=== PATIENT | male | born 1960 | race Caucasian/White ===

== ENCOUNTER 2016-09-04 07:08 | Inpatient (IN) | payer BC, OTHER ==
[~2016-09-04] VITALS: Ht 167.6 cm; Wt 65.3 kg
--- NOTE | 2016-11-15 23:30 | NUR ---
Intake Assessment Assessment done at intake office. Patient is alert & oriented x4. Pt is ambulatory with a steady gait. Speech is clear and audible. Pt appears appears anxious and is cooperative. Vitals noted B/P 153/102, PA 80, RR 16, Temp 97.9, O2Sat 98%. Pt is here for ETOH & Crack Cocaine. Pt has Anxiety, Depression, HTN, and Asthma. No seizure history noted. Pt denies any food and drug allergies. Pt brought his home medications which are Labetalol & Tylenol. Explained to pt unit protocols. Pt verbalized understanding.
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
[2016-11-15] MEDS ORDERED: MAGNESIUM HYDROXIDE 30 ML LIQUID UDC PO PRN (23:45)
[2016-11-15] MEDS ORDERED: THIAMINE HCL 200 MG/2 ML VIAL IM ONE (23:45)
[2016-11-15] MEDS ORDERED: ACETAMINOPHEN 325 MG TABLET PO PRN (23:45)
[2016-11-15] MEDS ORDERED: HYDROXYZINE PAMOATE 25 MG CAPSULE PO PRN (23:45)
[2016-11-15] MEDS ORDERED: LOPERAMIDE HCL 2 MG CAPSULE PO PRN ×2 (23:45)
[2016-11-15] MEDS ORDERED: LORAZEPAM 1 MG TABLET PO PRN (23:45)
[2016-11-15] MEDS ORDERED: ONDANSETRON 4 MG/2 ML VIAL IM PRN (23:45)
[2016-11-15] MEDS ORDERED: LORAZEPAM 2 MG/1 ML VIAL IM PRN (23:45)
[2016-11-15] MEDS ORDERED: MIRALAX 17 GM POWD.PACK PO PRN (23:45)
[2016-11-15] MEDS ORDERED: DICYCLOMINE HCL 20 MG TABLET PO PRN (23:45)
[2016-11-15] MEDS ORDERED: diphenhydrAMINE 50 MG CAPSULE PO PRN (23:45)
[2016-11-15] MEDS ORDERED: MAG HYDROX/AL HYDROX/SIMETH 30 ML LIQUID UDC PO PRN (23:45)
[2016-11-16] VITALS (7 sets, daily range): BP systolic 106–153; BP diastolic 82–102
[2016-11-16 00:03] LABS: *AMPHETAMINE, URINE NEGATIVE (NEGATIVE); *BARBITURATE, URINE NEGATIVE (NEGATIVE); *CANNABINOID, URINE NEGATIVE (NEGATIVE); *COCCAINE, URINE POSITIVE (NEGATIVE); *OPIATE, URINE NEGATIVE (NEGATIVE); *PHENCYCLIDINE SCREEN,URINE NEGATIVE (NEGATIVE)
[2016-11-16] MEDS: LORAZEPAM 1 MG TABLET PO PRN ×2 (00:27→09:38)
--- NOTE | 2016-11-16 00:27 | NUR ---
PRN Administration Patient complains of mild headache & anxiety. Hand tremors felt. CIWA 7 noted. Vitals taken. B/P 153/102, CA 80. PRN Clonidine, Ativan 1mg, & Motrin administered as ordered. Will reassess in 1 hour. Will continue to monitor.
[2016-11-16] MEDS: CLONIDINE HCL 0.1 MG TABLET PO PRN ×3 (00:28→13:19)
[2016-11-16] MEDS: IBUPROFEN 400 MG TABLET PO PRN ×3 (00:28→19:41)
[2016-11-16] MEDS ORDERED: IBUPROFEN 400 MG TABLET ONE ×2 (00:30→06:50)
[2016-11-16] MEDS ORDERED: LORAZEPAM 1 MG TABLET ONE (00:31)
[2016-11-16] MEDS ORDERED: CLONIDINE HCL 0.1 MG TABLET ONE ×2 (00:35→06:50)
--- NOTE | 2016-11-16 01:27 | NUR ---
PRN Reassessment Patient lying in bed with eyes closed. Patient appears comfortable with no s/s of distress noted. CIWA 1 noted at this time. Will continue to monitor patient.
[2016-11-16] MEDS ORDERED: ACET-2154 PO (01:51)
[2016-11-16] MEDS ORDERED: LABE200T PO (01:51)
--- NOTE | 2016-11-16 06:50 | NUR ---
PRN Administration Patient complain of 8/10 body aches, mild headache, sweating & chills. Patient noted to be anxious and restless with facial grimacing noted. VItals taken. B/P 129/96, FL 75. PRN Catapres and Motrin administered as ordered. Will continue to monitor patient.
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
[2016-11-16] MEDS ORDERED: TUBERCULIN,PURIF.PROT.DERIV. 5 TU/0.1 ML TEST ID ONE (09:00)
[2016-11-16] MEDS: THIAMINE HCL 100 MG TABLET PO SCH (09:38)
[2016-11-16] MEDS: MULTIVITAMINS,THERAPEUTIC TABLET PO SCH (09:38)
[2016-11-16] MEDS: FOLIC ACID 1 MG TABLET PO SCH (09:38)
--- NOTE | 2016-11-16 09:38 | NUR ---
PRN medication; Patient noted to be having withdrawal symptoms with current CIWA score of 9 manifested by hot and cold sweats, anxiety, fine tremors, stomach cramps, anxiety and agitation.
[2016-11-16 09:59] LABS: BASOPHILS % (AUTO) 0.4 % (0.0-2.0); EOSINOPHILS % (AUTO) 1.6 % (0.0-7.0); HEMATOCRIT 34.8 % (40-50); HEMOGLOBIN 11.1 G/DL (14.0-18.0); LYMPHOCYTES % (AUTO) 33.7 % (20.5-51.5); MEAN CORPUSCULAR HEMOGLOBIN 26.8 UUG (27.0-31.0); MEAN CORPUSCULAR HGB CONC 32 g/dL (32.0-37.0); MEAN CORPUSCULAR VOLUME 84.4 FL (82.0-92.0); MONOCYTES # (AUTO) 0.3 K/UL (0.1-1.30); MONOCYTES % (AUTO) 10.8 % (0.0-11.0); NEUTROPHILS # (AUTO) 1.8 K/UL (1.8-8.9); NEUTROPHILS % (AUTO) 53.5 % (38.5-71.5); PLATELET COUNT (AUTO) 130 K/UL (150-450); RED BLOOD CELL COUNT(AUTO) 4.12 MIL/UL (4.7-6.1); RED CELL DISTRIBUTION WIDTH 13.8 % (11.5-14.5); WHITE BLOOD COUNT (AUTO) 3.1 K/UL (4.0-11.2)
[2016-11-16 10:09] LABS: ALANINE AMINOTRANSFERASE 24 U/L (16-63); ALBUMIN 2.8 g/dL (3.4-5.0); ALKALINE PHOSPHATASE 75 U/L (50-136); AMYLASE 178 U/L (25-115); ASPARTATE AMINOTRANSFERASE 19 U/L (15-37); BILIRUBIN,TOTAL 0.3 mg/dL (0.2-1.0); CALCIUM 8.2 mg/dL (8.5-10.1); CARBON DIOXIDE 32 mmol/L (21-32); CHLORIDE 110 mmol/L (98-107); CREATININE 1.1 mg/dL (0.6-1.3); GFR 69 mL/min (>60); GLUCOSE 134 mg/dL (74-106); LIPASE 1028 U/L (73-393); MAGNESIUM 1.9 mg/dL (1.8-2.4); POTASSIUM 3.4 mmol/L (3.5-5.1); SODIUM SERUM 144 mmol/L (136-145); TOTAL PROTEIN, SERUM 6.7 g/dL (6.4-8.2); UREA NITROGEN, BLOOD 14 mg/dL (7-18)
[2016-11-16 10:18] LABS: THYROID STIMULATING HORMONE 0.497 mIU/mL (0.358-3.740)
--- NOTE | 2016-11-16 10:38 | NUR ---
Re-assessment; PRN medication is effective. Patient's CIWA went down to 8 from CIWA score of 10. Will closely monitor patient. made aware, MD ordered 3 day Ativan taper to start at 1300. MD notified of patient's LAB results, no new order at this time. Will closely monitor patient.
[2016-11-16 10:43] LABS: ETHANOL < 3 MG/DL (0-0)
[2016-11-16 10:45] LABS: HIV-1 p24 ANTIGEN NON REACTIVE (NONREACTIVE); HIV-1/2 ANTIBODY REACTIVE (NONREACTIVE)
--- NOTE | 2016-11-16 11:51 | NUR ---
Client refuses to attend therapy group. Client is not feeling well.
[2016-11-16] MEDS: LORAZEPAM 1 MG TABLET PO SCH ×3 (13:18→21:57)
--- NOTE | 2016-11-16 13:19 | NUR ---
PRN medication; Patient noted to have elevated BP 142 /101. PRN Catapres 0.1mg PO given for elevated BP. Will closely monitor patient.
--- NOTE | 2016-11-16 14:19 | NUR ---
Re-assessment; Patient's current BP 128 /88, PRN medication is effective.
[2016-11-16] MEDS: GABAPENTIN 300 MG CAPSULE PO SCH (14:30)
[2016-11-16] MEDS ORDERED: POTASSIUM CHLORIDE 20 MEQ TAB.PRT.SR PO ONE (15:30)
--- NOTE | 2016-11-16 15:30 | NUR ---
New Order; ordered K-DUR 20meq to be administered for supplement. Will continue to monitor patient.
[2016-11-16] MEDS: ONDANSETRON ODT 4 MG TAB.RAPDIS SL PRN (18:26)
--- NOTE | 2016-11-16 18:32 | NUR ---
PRN medication; Patient is complaining of nausea, PRN Zofran 4mg ODT given to patient. Will continue to monitor patient.
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
--- NOTE | 2016-11-16 19:41 | NUR ---
PRN Reassessment & Administration Patient was given Zofran SL @ 1826 for nausea and noted to be ineffective. Patient still complains of nausea. No episode of vomiting noted. Patient also complains of 6/10 headache. Patient appears anxious and restless with facial grimacing noted. PRN Zofran IM and Motrin administered as ordered. Will reassess in 1 hour. Will continue to monitor patient.
--- NOTE | 2016-11-16 20:41 | NUR ---
PRN Reassessment Patient verbalized improved nausea and relief from headache. Patient lying in bed with eyes closed. Patient appears comfortable with no s/s of distress noted. Safety precautions are in place. Will continue to monitor patient.
[2016-11-16] MEDS ORDERED: GABAPENTIN 300 MG CAPSULE PO SCH (21:00)
[2016-11-16] MEDS: LABETALOL HCL 200 MG TABLET PO SCH (21:57)
[2016-11-17] VITALS: BP 150/102
[2016-11-17] MEDS: CLONIDINE HCL 0.1 MG TABLET PO PRN ×2 (00:35→09:19)
--- NOTE | 2016-11-17 00:35 | NUR ---
PRN Adminstration Patient noted with anxiety and B/P of 150/102, SC 74. PRN Clonidine administered as ordered. Will continue to monitor patient.
[2016-11-17 04:00] VITALS: BP_SYST 147; BP_SYST 90; BP_DIAS 55; BP_DIAS 95
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
[2016-11-17 08:00] VITALS: BP 147/106
[2016-11-17 08:23] LABS: CALCIUM 8.7 mg/dL (8.5-10.1); POTASSIUM 5.2 mmol/L (3.5-5.1)
[2016-11-17 08:46] LABS: HIV-1 p24 ANTIGEN NON REACTIVE (NONREACTIVE); HIV-1/2 ANTIBODY REACTIVE (NONREACTIVE)
[2016-11-17] MEDS: LORAZEPAM 1 MG TABLET PO SCH ×3 (09:19→20:58)
[2016-11-17] MEDS: ONDANSETRON ODT 4 MG TAB.RAPDIS SL PRN ×2 (09:19→20:58)
[2016-11-17] MEDS: MULTIVITAMINS,THERAPEUTIC TABLET PO SCH (09:19)
[2016-11-17] MEDS: FOLIC ACID 1 MG TABLET PO SCH (09:19)
[2016-11-17] MEDS: GABAPENTIN 300 MG CAPSULE PO SCH ×3 (09:19→20:58)
[2016-11-17] MEDS: THIAMINE HCL 100 MG TABLET PO SCH (09:19)
--- NOTE | 2016-11-17 09:19 | NUR ---
PRN medication; Patient's BP is elevated 147/106, Clonidine 0.1mg PO given. Patient is also complaining of nausea, Zofran 4mg ODT given. Will closely monitor patient.
[2016-11-17] MEDS: LABETALOL HCL 200 MG TABLET PO SCH ×2 (09:20→20:58)
[2016-11-17] MEDS: IBUPROFEN 400 MG TABLET PO PRN ×2 (09:31→20:58)
--- NOTE | 2016-11-17 09:31 | NUR ---
PRN medication; Patient is complaining of generalized pain rated 6/10. PRN Motrin 400mg PO given. Will continue to monitor patient.
--- NOTE | 2016-11-17 10:31 | NUR ---
Re-assessment; Patient denies pain at this time, PRN Motrin is effective. Patient denies nausea and current BP is 137/72. PRN Clonidine and Zofran is effective.
[2016-11-17 11:08] LABS: HCV AB <0.1 s/co ratio (0.0-0.9); HEPATITIS B CORE AB, IgM Negative (Negative); HEPATITIS B SURFACE AG Negative (Negative)
[2016-11-17 12:00] VITALS: BP 131/85
--- NOTE | 2016-11-17 12:00 | NUR ---
1:1 supervision; Patient was placed on 1:1 supervision for safety due to unsteady gait. Safety measures secured.
--- NOTE | 2016-11-17 12:00 | NUR ---
Nursing note; Patient verbalized that he was previously diagnosed with HIV (+), he was on treatment for HIV (Triumeq). Patient stopped taking medication 4 months ago d/t financial reasons. was notified per charge nurse. Will continue to monitor patient.
[2016-11-17] MEDS ORDERED: METHOCARBAMOL 750 MG TABLET PO PRN (12:30)
[2016-11-17] MEDS: AMLODIPINE 5 MG TABLET PO SCH (13:06)
--- NOTE | 2016-11-17 15:00 | NUR ---
Medication held; Ativan dose held due to unsteady gait, patient is currently under direct supervision of UNSTACKER. MD notified. Will closely monitor patient.
[2016-11-17 16:00] VITALS: BP 132/89
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
[2016-11-17 20:00] VITALS: BP 141/94
--- NOTE | 2016-11-17 20:58 | NUR ---
PRN Motrin & Zofran Patient complains of 5/10 headache, body aches and nausea. No episode of vomiting noted. Patient lying in bed and appears restless with facial grimacing noted. PRN Motrin & Zofran administered as ordered. Will reassess in 1 hour. Will continue to monitor
--- NOTE | 2016-11-17 21:58 | NUR ---
PRN Reassessment Patient is asleep in bed and appears comfortable. No facial grimacing noted. No s/s of distress. Safety precautions are in place. Will continue to monitor patient.
[2016-11-18] VITALS: BP 110/74
[2016-11-18 04:00] VITALS: BP 139/82
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
[2016-11-18 08:00] VITALS: BP 134/101
[2016-11-18 08:08] LABS: CALCIUM 8.5 mg/dL (8.5-10.1); CREATININE 1.1 mg/dL (0.6-1.3); POTASSIUM 4.7 mmol/L (3.5-5.1)
[2016-11-18] MEDS: GABAPENTIN 300 MG CAPSULE PO SCH ×3 (09:00→20:27)
--- NOTE | 2016-11-18 09:00 | NUR ---
VSS CIWA 9 c/o tremors, sweating, anxiety and back pain. Motrin 400mg po prn given for back pain 02/07
[2016-11-18] MEDS: FOLIC ACID 1 MG TABLET PO SCH (09:01)
[2016-11-18] MEDS: THIAMINE HCL 100 MG TABLET PO SCH (09:01)
[2016-11-18] MEDS: MULTIVITAMINS,THERAPEUTIC TABLET PO SCH (09:01)
[2016-11-18] MEDS: LORAZEPAM 1 MG TABLET PO SCH ×2 (09:01→20:27)
[2016-11-18] MEDS: AMLODIPINE 5 MG TABLET PO SCH (09:01)
[2016-11-18] MEDS: LABETALOL HCL 200 MG TABLET PO SCH ×2 (09:02→20:27)
[2016-11-18] MEDS: IBUPROFEN 400 MG TABLET PO PRN (09:09)
--- NOTE | 2016-11-18 10:00 | NUR ---
Pt states back pain 5/10 after Motrin prn
[2016-11-18 13:24] VITALS: BP 130/92
[2016-11-18] MEDS: KETOROLAC TROMETHAMINE 30 MG INJ IM PRN (13:36)
--- NOTE | 2016-11-18 13:40 | NUR ---
Pt c/o back pain 10/10 Toradol 30mg IM prn administered.
--- NOTE | 2016-11-18 14:49 | NUR ---
Pt states back pain 10 after Toradol IM prn
[2016-11-18] MEDS: DOCUSATE SODIUM 100 MG CAPSULE PO SCH (17:34)
[2016-11-18] MEDS: HYDROCORTISONE 2.5 % RECTAL CREAM 28.35 GM TUBE RC SCH (17:35)
[2016-11-18 17:49] VITALS: BP 129/92
--- NOTE | 2016-11-18 18:42 | NUR ---
END OF SHIFT NOTE: Report given to dark room attendant nurse. Patient is a 56 year old male admitted on 11/15/16 for ETOH/cocaine dependence. Pt is currently on a 5 day Ativan taper. Tolerating well. Pt is alert and oriented X4. Color good, skin warm and dry. Respirations even and unlabored. Vital signs have remained stable throughout shift. Last CIWA 4 @ 1600. Motrin 400mg po prn given for back pain 02/07 @ 0900 and Toradol 30mg IM prn administered @ 1340. Resting in bed. Safety precautions observed. Call light within reach.
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
[2016-11-18 20:00] VITALS: BP 136/95
[2016-11-18] MEDS: NYSTATIN POWDER 15 GM BOTTLE TOP SCH (20:28)
[2016-11-18] MEDS ORDERED: MIRALAX 17 GM POWD.PACK PO PRN (23:45)
[2016-11-19] VITALS: BP 122/72
--- NOTE | 2016-11-19 02:21 | NUR ---
PRN ROBAXIN Pt complains of back pain/spasm 04/09. PRN Robaxin administered as ordered. Breathing even and unlabored, safety measures in place. Will monitor effectiveness.
--- NOTE | 2016-11-19 03:21 | NUR ---
PRN ROBAXIN REASSESSMENT PRN medication effective. Pt is lying comfortably in bed with eyes closed and is noted to be asleep. Respirations 16, breathing is even and unlabored, safety measures in place. Will monitor.
[2016-11-19 04:00] VITALS: BP 135/80
--- NOTE | 2016-11-19 04:00 | NUR ---
CIWA DEFERRED Pt lying in bed with eyes closed and is noted to be asleep. Respirations 16, breathing is even and unlabored, safety measures in place. Will continue to monitor.
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
[2016-11-19 08:00] VITALS: BP 133/100
[2016-11-19] MEDS: DOCUSATE SODIUM 100 MG CAPSULE PO SCH ×2 (09:00→16:20)
--- NOTE | 2016-11-19 09:00 | NUR ---
VSS CIWA 4 c/o sweating and anxiety. C/O back pain 10/10 Toradol 30mg IM prn administered.
[2016-11-19 09:07] LABS: *BASOS 1 % (.); *EOS 1 % (.); *EOS ABSOLUTE 0.1 x10E3/uL (0.0-0.4); *HCT 38.3 % (37.5-51.0); *HGB 11.8 g/dL (12.6-17.7); *IMMATURE GRANULOCYTES 0 % (.); *LYMPHOCYTES 29 % (.); *LYMPHOCYTES ABSOLUTE 1.3 x10E3/uL (0.7-3.1); *MCH 26.6 pg (26.6-33.0); *MCHC 30.8 g/dL (31.5-35.7); *MCV 86 fL (79-97); *MONOCYTES 10 % (.); *MONOCYTES ABSOLUTE 0.4 x10E3/uL (0.1-0.9); *NEUTROPHILS 59 % (.); *NEUTROPHILS ABSOLUTE 2.6 x10E3/uL (1.4-7.0); *PLT 141 x10E3/uL (150-379); *RBC 4.44 x10E6/uL (4.14-5.80); *WBC 4.4 x10E3/uL (3.4-10.8)
[2016-11-19] MEDS: NYSTATIN POWDER 15 GM BOTTLE TOP SCH ×2 (09:10→20:37)
[2016-11-19] MEDS: HYDROCORTISONE 2.5 % RECTAL CREAM 28.35 GM TUBE RC SCH ×2 (09:11→17:03)
[2016-11-19] MEDS: GABAPENTIN 300 MG CAPSULE PO SCH ×3 (09:12→20:35)
[2016-11-19] MEDS: THIAMINE HCL 100 MG TABLET PO SCH (09:12)
[2016-11-19] MEDS: FOLIC ACID 1 MG TABLET PO SCH (09:12)
[2016-11-19] MEDS: MULTIVITAMINS,THERAPEUTIC TABLET PO SCH (09:12)
[2016-11-19] MEDS: LABETALOL HCL 200 MG TABLET PO SCH ×2 (09:12→20:37)
[2016-11-19] MEDS: AMLODIPINE 5 MG TABLET PO SCH (09:13)
[2016-11-19] MEDS: KETOROLAC TROMETHAMINE 30 MG INJ IM PRN (09:13)
--- NOTE | 2016-11-19 10:05 | NUR ---
Pt states pain 6/10 after Toradol IM prn
[2016-11-19 13:28] VITALS: BP 122/86
[2016-11-19 14:18] LABS: *AMPHETAMINE, URINE NEGATIVE (NEGATIVE); *BARBITURATE, URINE NEGATIVE (NEGATIVE); *CANNABINOID, URINE NEGATIVE (NEGATIVE); *OPIATE, URINE NEGATIVE (NEGATIVE); *PHENCYCLIDINE SCREEN,URINE NEGATIVE (NEGATIVE)
[2016-11-19 14:26] LABS: *COCCAINE, URINE NEGATIVE (NEGATIVE)
--- NOTE | 2016-11-19 14:46 | NUR ---
Pt c/o headache. Motrin 400mg po prn given
--- NOTE | 2016-11-19 15:13 | NUR ---
Client was encouraged to attend the afternoon clinical group. Client declined stating he felt unwell.
--- NOTE | 2016-11-19 15:45 | NUR ---
Pt states headache improved after Motrin prn
[2016-11-19 18:01] VITALS: BP 131/88
[2016-11-19] MEDS: ESCITALOPRAM OXALATE 10 MG TABLET PO SCH (18:29)
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
--- NOTE | 2016-11-19 19:30 | NUR ---
START OF SHIFT-- Patient is a 56 year old male admitted on 11/15/16 for ETOH/cocaine dependence. Pt completed a 5 day Ativan taper. To be discharged in AM. Pt is alert and oriented X4; skin warm and dry. Respirations even and unlabored. Vital signs have remained stable throughout shift. Remains compliant with medication and diet regimen. All needs have been met, All safety measures in place per hospital policy. Bed in lowest position, side rails up x2, call-light within reach. Will continue to monitor.
[2016-11-19 20:00] VITALS: BP 138/97
[2016-11-20] VITALS: BP 124/79
[2016-11-20 03:06] LABS: *HELPER T-LYMPH MARKR(CD4)ABSO 228 /uL (359-1519); *HELPER T-LYNPH MARKER CD4)% 17.5 % (30.8-58.5)
[2016-11-20] MEDS: KETOROLAC TROMETHAMINE 30 MG INJ IM PRN (03:59)
[2016-11-20 04:00] VITALS: BP 135/86
--- NOTE | 2016-11-20 04:00 | NUR ---
PRN MEDS PRN TORADOL IM GIVEN ORDERED PER PT REQUEST FOR BACK PAIN.PAIN LEVEL IS 10/10.
--- NOTE | 2016-11-20 05:00 | NUR ---
prn f/u Pt verbalizes feeling better.Pain level is 2/10.
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
[2016-11-20 08:00] VITALS: BP 124/86
[2016-11-20] MEDS: LABETALOL HCL 200 MG TABLET PO SCH (08:43)
[2016-11-20 08:44] VITALS: BP 124/86
[2016-11-20] MEDS: GABAPENTIN 300 MG CAPSULE PO SCH (08:44)
[2016-11-20] MEDS: ESCITALOPRAM OXALATE 10 MG TABLET PO SCH (08:44)
[2016-11-20] MEDS: FOLIC ACID 1 MG TABLET PO SCH (08:44)
[2016-11-20] MEDS: NYSTATIN POWDER 15 GM BOTTLE TOP SCH (08:44)
[2016-11-20] MEDS: MULTIVITAMINS,THERAPEUTIC TABLET PO SCH (08:44)
[2016-11-20] MEDS: AMLODIPINE 5 MG TABLET PO SCH (08:44)
[2016-11-20] MEDS: DOCUSATE SODIUM 100 MG CAPSULE PO SCH (08:44)
[2016-11-20] MEDS: THIAMINE HCL 100 MG TABLET PO SCH (09:00)
[2016-11-20] MEDS: HYDROCORTISONE 2.5 % RECTAL CREAM 28.35 GM TUBE RC SCH (09:00)
[2016-11-20] MEDS ORDERED: ESCI10TA PO (09:18)
[2016-11-20] MEDS ORDERED: Ondansetron SL (09:18)
[2016-11-20] MEDS ORDERED: Gabapentin PO (09:18)
[2016-11-20] MEDS ORDERED: METH-33 PO (09:18)
[2016-11-20] MEDS ORDERED: Nystatin TOP (09:18)
[2016-11-20] MEDS ORDERED: CLON0.1T14 PO (09:18)
[2016-11-20] MEDS ORDERED: HYDR28.316 RC (09:18)
--- NOTE | 2016-11-20 09:50 | NUR ---
Discharge note; Patient is AOX4. All valuables, belongings, medications and prescriptions given to patient. Patient completed taper without any adverse reactions. Patient denies pain, suicidal ideations. Patient was escorted out of the hospital by CLINICAL PATHOLOGIST, left the hospital at exactly 0950 on 11/20/16. Patient left in a stbale condition.
[2016-11-21 16:09] LABS: *HIV-1 log10 RNA 4.956 (.)
[2016-11-21 19:06] LABS: *BENZODIAZEPINES Negative (Cutoff=300); *COCAINE Positive (.)
== END 2016-11-20 09:50 | DRG 895 ==
LOC: SRC 11-15 22:32
PROVIDERS: ADMIT Internal Medicine; ATTEND Internal Medicine
PROC: HZ2ZZZZ Detoxification Services for Substance Abuse Treatment (ICD-10-PCS; principal; 2016-11-15)
PROC: HZ31ZZZ Individual Counseling for Substance Abuse Treatment, Behavioral (ICD-10-PCS; 2016-11-16)
PROC: HZ41ZZZ Group Counseling for Substance Abuse Treatment, Behavioral (ICD-10-PCS; 2016-11-17)
DX: F10.230 Alcohol dependence with withdrawal, uncomplicated (principal); K85.20 Alcohol induced acute pancreatitis without necrosis or infection; F14.20 Cocaine dependence, uncomplicated; Y90.9 Presence of alcohol in blood, level not specified; D64.9 Anemia, unspecified; Z81.4 Family history of other substance abuse and dependence; F12.10 Cannabis abuse, uncomplicated; J45.909 Unspecified asthma, uncomplicated; Z91.120 Patient's intentional underdosing of medication regimen due to financial hardship; I10 Essential (primary) hypertension; D72.819 Decreased white blood cell count, unspecified; E87.5 Hyperkalemia; B35.6 Tinea cruris; K59.00 Constipation, unspecified; K64.9 Unspecified hemorrhoids; K40.90 Unilateral inguinal hernia, without obstruction or gangrene, not specified as recurrent; F41.9 Anxiety disorder, unspecified; T14.90 Injury, unspecified; M43.26 Fusion of spine, lumbar region; V89.2XXS Person injured in unspecified motor-vehicle accident, traffic, sequela
CPT/HCPCS: 36415; 70030-TC; 80307; 80346; 80353; 83550; 83690; 83735; 84443; 85025; 86361; 86592; 86705; 86803; 87340; 87536; 87806; G6040-TC; J1885; J2405; J3411; Q0162

== ENCOUNTER 2017-06-26 19:32 | Inpatient (IN) | payer BC, OTHER ==
[~2017-06-26] VITALS: Ht 167.6 cm; Wt 73.5 kg
[~2017-06-26 19:32] MED LIST: ACET-2154 PO; CLON0.1T14 PO; ESCI10TA PO; Gabapentin PO; HYDR28.316 RC; LABE200T PO; METH-33 PO; Nystatin TOP; Ondansetron SL
[2017-06-26 23:45] VITALS: BP 112/77
--- NOTE | 2017-06-26 23:45 | NUR ---
PRE-ADMISSION NOTE VS BP-112/77 T-97.9 P-70 R-16 PA-4/10, LOWER BACK PAIN. SpO2 AT 98% IN RA. PATIENT ALERT AND ORIENTED X 4. AMBULATORY WITH STEADY GAIT. SPEECH IS CLEAR AND ABLE TO ANSWER QUESTIONS APPROPRIATELY. PATIENT STATES NO HISTORY OF SEIZURE . NO ALLERGIES TO FOOD OR MEDICATIONS. WILL CONTINUE ADMISSION ON 3RD FLOOR
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
[2017-06-27] MEDS ORDERED: diphenhydrAMINE 50 MG CAPSULE PO PRN
[2017-06-27] MEDS ORDERED: ONDANSETRON ODT 4 MG TAB.RAPDIS SL PRN
[2017-06-27] MEDS ORDERED: IBUPROFEN 400 MG TABLET PO PRN
[2017-06-27] MEDS ORDERED: MAGNESIUM HYDROXIDE 30 ML LIQUID UDC PO PRN
[2017-06-27] MEDS ORDERED: ACETAMINOPHEN 325 MG TABLET PO PRN
[2017-06-27] MEDS ORDERED: MAG HYDROX/AL HYDROX/SIMETH 30 ML LIQUID UDC PO PRN
[2017-06-27] MEDS ORDERED: THIAMINE HCL 200 MG/2 ML VIAL IM ONE
[2017-06-27] MEDS ORDERED: ONDANSETRON 4 MG/2 ML VIAL IM PRN
[2017-06-27] MEDS ORDERED: LORAZEPAM 2 MG/1 ML VIAL IM PRN
[2017-06-27] MEDS ORDERED: LORAZEPAM 1 MG TABLET PO PRN ×2
[2017-06-27] MEDS ORDERED: MIRALAX 17 GM POWD.PACK PO PRN
[2017-06-27] MEDS ORDERED: DICYCLOMINE HCL 20 MG TABLET PO PRN
[2017-06-27] MEDS ORDERED: LOPERAMIDE HCL 2 MG CAPSULE PO PRN ×2
[2017-06-27 01:14] LABS: *AMPHETAMINE, URINE NEGATIVE (NEGATIVE); *BARBITURATE, URINE NEGATIVE (NEGATIVE); *CANNABINOID, URINE POSITIVE (NEGATIVE); *COCCAINE, URINE POSITIVE (NEGATIVE); *OPIATE, URINE NEGATIVE (NEGATIVE); *PHENCYCLIDINE SCREEN,URINE NEGATIVE (NEGATIVE)
[2017-06-27] MEDS ORDERED: ALBU8.5H8 IH (03:05)
[2017-06-27] MEDS ORDERED: QUET100T PO (03:05)
[2017-06-27] MEDS ORDERED: IBUP-1955 PO (03:05)
[2017-06-27] MEDS ORDERED: CYCL10TA9 PO (03:05)
[2017-06-27] MEDS ORDERED: FLUO40CA8 PO (03:05)
[2017-06-27] MEDS ORDERED: ABAC1TAB15 PO (03:05)
[2017-06-27] MEDS ORDERED: ETOD400T PO (03:05)
[2017-06-27] MEDS ORDERED: CHLO25TA2 PO (03:05)
[2017-06-27] MEDS ORDERED: DOXY-182 PO (03:05)
[2017-06-27] MEDS ORDERED: ALPR1TAB7 PO (03:05)
[2017-06-27] MEDS ORDERED: OMEP20TA5 PO (03:05)
[2017-06-27] MEDS ORDERED: PRED20TA PO (03:05)
[2017-06-27 04:00] VITALS: BP 124/68
--- NOTE | 2017-06-27 07:21 | NUR ---
END OF SHIFT NOTE PATIENT SLEPT 4 HOURS. FLUID INTAKE 250 ML. VOIDED X 1. NO BM. PATIENT IS A 57 YEAR OLD MALE NEWLY ADMITTED FOR ETOH AND BENZO DEPENDENCE. PATIENT DID NOT REQUIRE ANY PRN MEDICATION DURING SHIFT. PATIENT REQUESTED BLOOD DRAW AND THIAMINE TO BE GIVEN IN AM. ON FALL PRECAUTION . SAFETY MEASURES IN PLACE. CALL LIGHT IN REACH .WILL CONTINUE TO MONITOR
--- NOTE | 2017-06-27 07:29 | NUR ---
Start of Shift Notes: Received patient in his room. Alert and verbally responsive. Oriented x 4. Appears drowsy upon waking. Respirations even and unlabored. No SOB noted. Skin warm and dry to touch. Abdomen soft and non-distended. BS (+) in all 4 quadrants. No complains of N/V/D or constipation noted. Voids independently. Ambulatory ad lb with steady gait. Patient is a 57 year old male admitted for ETOH/crack cocaine dependence who was placed on PRNs at this time. Has past medical hx of HIV positive, low back surgery, anxiety, depression, HTN, anxiety, asthma. NKA. FULL CODE. Regular diet. on fall and seizure precautions. Educated patient on his current plan of care and his medication regimen. Encouraged oral fluid and encouraged group participation to learn new skills to prevent relapse.
[2017-06-27 08:00] VITALS: BP 133/84
[2017-06-27] MEDS: FOLIC ACID 1 MG TABLET PO SCH (08:32)
[2017-06-27] MEDS: LORAZEPAM 1 MG TABLET PO SCH ×3 (08:32→21:28)
[2017-06-27] MEDS: MULTIVITAMINS,THERAPEUTIC TABLET PO SCH (08:32)
[2017-06-27] MEDS: THIAMINE HCL 100 MG TABLET PO SCH (08:32)
--- NOTE | 2017-06-27 08:35 | NUR ---
Motrin 400 mg PO given: Patient noted with complain of 6/10 low back pain. Non-pharmacological interventions provided but ineffective. Medicated patient with Motrin 400mg PO as ordered. Will monitor for effectiveness.
[2017-06-27 08:38] LABS: ETHANOL < 3 MG/DL (0-0)
[2017-06-27 08:41] LABS: ALANINE AMINOTRANSFERASE 33 U/L (16-63); ALKALINE PHOSPHATASE 67 U/L (50-136); AMYLASE 69 U/L (25-115); ASPARTATE AMINOTRANSFERASE 24 U/L (15-37); BILIRUBIN,TOTAL 0.3 mg/dL (0.2-1.0); CARBON DIOXIDE 31 mmol/L (21-32); CHLORIDE 106 mmol/L (98-107); CREATININE 1.3 mg/dL (0.6-1.3); GLUCOSE 98 mg/dL (74-106); TOTAL PROTEIN, SERUM 6.6 g/dL (6.4-8.2); UREA NITROGEN, BLOOD 15 mg/dL (7-18)
[2017-06-27] MEDS ORDERED: TUBERCULIN,PURIF.PROT.DERIV. 5 TU/0.1 ML TEST ID ONE (09:00)
--- NOTE | 2017-06-27 09:00 | NUR ---
Vitamin B1 injection not administered: Patient refused Vitamin B1 injection at this time. Patient education provided of the risk ane benefits but patient still refused. Will continue to monitor.
[2017-06-27 09:31] LABS: BASOPHILS % (AUTO) 1.3 % (0.0-2.0); EOSINOPHILS # (AUTO) 0.1 K/uL (0.0-0.7); EOSINOPHILS % (AUTO) 2.3 % (0.0-7.0); HEMATOCRIT 39.4 % (36.7-47.1); HEMOGLOBIN 12.8 g/dL (12.5-16.3); LYMPHOCYTES # (AUTO) 1.3 K/uL (20.0-40.0); LYMPHOCYTES % (AUTO) 51.3 % (20.5-51.5); MEAN CORPUSCULAR HEMOGLOBIN 27.1 uug (23.8-33.4); MEAN CORPUSCULAR HGB CONC 33 g/dL (32.5-36.3); MEAN CORPUSCULAR VOLUME 83.4 fL (73.0-96.2); MONOCYTES # (AUTO) 0.3 K/uL (2.0-10.0); MONOCYTES % (AUTO) 12.3 % (0.0-11.0); NEUTROPHILS # (AUTO) 0.9 K/uL (1.8-8.9); NEUTROPHILS % (AUTO) 32.8 % (38.5-71.5); PLATELET COUNT (AUTO) 98 K/uL (152-348); RED BLOOD CELL COUNT(AUTO) 4.72 MIL/uL (4.06-5.63); WHITE BLOOD COUNT (AUTO) 2.6 K/uL (3.6-10.2)
--- NOTE | 2017-06-27 09:32 | NUR ---
Labs: HIV Patient's labs "reactive A." Patient has past medical hx of HIV (+).
--- NOTE | 2017-06-27 09:35 | NUR ---
Re-assessment: Motrin Per patient, PRN Motrin was effective in reducing pain to lower back. PL 09/07.
[2017-06-27] MEDS ORDERED: ALBUTEROL SULFATE 8 GM HFA.AER.AD IH PRN (10:15)
[2017-06-27] MEDS ORDERED: ALBUTEROL SULFATE 2.5 MG/3 ML NEBU NEB PRN (10:30)
--- NOTE | 2017-06-27 11:09 | NUR ---
Psych Eval: Patient was seen and examined by Dr. Brown with new orders. Orders noted and carried out. Patient education provided.
[2017-06-27] MEDS: ESCITALOPRAM OXALATE 10 MG TABLET PO SCH (11:38)
[2017-06-27 12:00] VITALS: BP 133/89
[2017-06-27] MEDS ORDERED: hydrALAZINE HCL 50 MG TABLET PO PRN ×2 (12:30)
[2017-06-27] MEDS ORDERED: METHYL SALICYLATE/MENTHOL CREAM 28 GM TUBE TOP PRN (12:30)
[2017-06-27] MEDS ORDERED: POTASSIUM CHLORIDE 20 MEQ TAB.PRT.SR PO ONE (13:00)
[2017-06-27 13:24] LABS: BASOPHILS % (MANUAL) 1 % (0-2); EOSINOPHILS % (MANUAL) 2 % (0-8); LYMPHOCYTES % (MANUAL) 53 % (20-40); MONOCYTES % (MANUAL) 11 % (2-10); NEUTROPHILS % (MANUAL) 33 % (42-75)
[2017-06-27 16:00] VITALS: BP 133/89
--- NOTE | 2017-06-27 19:01 | NUR ---
End of Shift Notes: Patient initiated his 4-day Ativan taper as ordered today at 0900. No adverse reactions noted. VS monitored closely. No significant abnormalities noted. Withdrawal symptoms were closely monitored. Initial CIWA 11, patient presented with restlessness, anxiety, tremors, and sweats. No S/I or H/I noted. No AV hallucinations noted. Last CIWA 5 at 1600. Per patient, Ativan has been effective in reducing his withdrawal symptoms. Medicated patient with Motrin 400 mg PO at 0835 for low back pain with help after 1 hour. Unable to participate in group and activities due to his withdrawal symptoms. All needs met and attended. Will continue to monitor closely.
[2017-06-27 20:00] VITALS: BP 125/78
--- NOTE | 2017-06-27 20:00 | NUR ---
Start of Shift Patient asleep on bed but arousable. With mild anxiety noted. No SOB observed. Pt is AAOx4. Placed on Ativan taper, to complete on 06/30/17 in the morning. No adverse reaction noted. Pt is HIV positive and is on antiretroviral medication. Pt is ambulatory with steady gait and with no skin issues. Pt c/o low back pain=3/10, with PRN meds. Fall, universal, seizure and safety prec in place. Call light within reach. Latest CIWA-7. Will continue to monitor.
[2017-06-27] MEDS: LABETALOL HCL 200 MG TABLET PO SCH (21:28)
[2017-06-27] MEDS: QUETIAPINE FUMARATE 100 MG TABLET PO SCH (21:28)
[2017-06-27] MEDS: IBUPROFEN 600 MG TABLET PO PRN (21:46)
--- NOTE | 2017-06-27 21:46 | NUR ---
RN note PRN Motrin Pt c/o low back pain with pain level=6/10. Administered Motrin 600 mg PO PRN as ordered. Will reassess.
--- NOTE | 2017-06-27 22:45 | NUR ---
RN note reassess Pt verbalized that low back pain level improved to 2-3/10.
[2017-06-28] VITALS: BP 137/81
[2017-06-28 04:00] VITALS: BP 132/85
[2017-06-28] MEDS: IBUPROFEN 600 MG TABLET PO PRN ×2 (05:49→20:07)
--- NOTE | 2017-06-28 05:50 | NUR ---
RN note PRN Motrin Pt c/o headache with pain level=7/10. Administered Motrin 600 mg PO PRN as ordered. Will reassess.
--- NOTE | 2017-06-28 06:50 | NUR ---
RN note reassess Pt verbalized that headache decreased to 2-3/10.
--- NOTE | 2017-06-28 07:15 | NUR ---
Start of Shift Endorsement received from nightshift nurse. Pt is a 57 y/o admitted for alcohol dependence. Pt has been placed on a 4 day Ativan taper under the care of Dr. Rai. Pt is tolerating the taper AEB CIWA 4 at 0400. PT did not receive any PRN medications. PT reports sleeping 11 hours and feels rested. VS WNL. Full Code. PT is alert and oriented x4. Pt is in STABLE condition at this time. Remains compliant with medication and diet regimen. All needs have been met, All safety measures in place per hospital policy. Bed in lowest position, side rails up x2, call-light within reach. Will continue to monitor
--- NOTE | 2017-06-28 07:28 | NUR ---
End of Shift Patient asleep on bed but arousable. With mild anxiety noted. No SOB observed. Pt is AAOx4. Placed on Ativan taper, to complete on 06/30/17 in the morning. No adverse reaction noted. Pt is HIV positive and is on antiretroviral medication. Pt is ambulatory with steady gait and with no skin issues. Pt c/o low back pain=3/10, with PRN meds. Fall, universal, seizure and safety prec in place. Call light within reach. Latest CIWA-4, slept for 11 hours. Endorsed to AM shift nurse for continuity of care.
[2017-06-28 08:00] VITALS: BP 125/80
[2017-06-28] MEDS ORDERED: CHLORTHALIDONE 25 MG TABLET PO SCH (09:00)
[2017-06-28] MEDS: LABETALOL HCL 200 MG TABLET PO SCH ×2 (09:16→20:03)
[2017-06-28] MEDS: TRIUMEQ PO SCH (09:16)
[2017-06-28] MEDS: MULTIVITAMINS,THERAPEUTIC TABLET PO SCH (09:17)
[2017-06-28] MEDS: LORAZEPAM 1 MG TABLET PO SCH ×3 (09:17→20:03)
[2017-06-28] MEDS: THIAMINE HCL 100 MG TABLET PO SCH (09:17)
[2017-06-28] MEDS: ESCITALOPRAM OXALATE 10 MG TABLET PO SCH (09:17)
[2017-06-28] MEDS: FOLIC ACID 1 MG TABLET PO SCH (09:17)
[2017-06-28 10:08] LABS: *BASOS 1 % (Not Estab.); *EOS 3 % (Not Estab.); *EOS ABSOLUTE 0.1 x10E3/uL (0.0-0.4); *HCT 39.2 % (37.5-51.0); *HGB 12.6 g/dL (13.0-17.7); *IMMATURE GRANULOCYTES 0 % (Not Estab.); *LYMPHOCYTES 53 % (Not Estab.); *LYMPHOCYTES ABSOLUTE 1.4 x10E3/uL (0.7-3.1); *MCH 26.6 pg (26.6-33.0); *MCHC 32.1 g/dL (31.5-35.7); *MCV 83 fL (79-97); *MONOCYTES 10 % (Not Estab.); *MONOCYTES ABSOLUTE 0.3 x10E3/uL (0.1-0.9); *NEUTROPHILS 33 % (Not Estab.); *NEUTROPHILS ABSOLUTE 0.9 x10E3/uL (1.4-7.0); *PLT 108 x10E3/uL (150-379); *RBC 4.73 x10E6/uL (4.14-5.80); *RDW 15.7 % (12.3-15.4); *WBC 2.6 x10E3/uL (3.4-10.8)
[2017-06-28 11:12] LABS: CREATININE 1.3 mg/dL (0.6-1.3); MAGNESIUM 1.7 mg/dL (1.8-2.4); POTASSIUM 3.3 mmol/L (3.5-5.1)
[2017-06-28 11:20] LABS: EOSINOPHILS # (AUTO) 0.1 K/uL (0.0-0.7); EOSINOPHILS % (AUTO) 1.6 % (0.0-7.0); HEMATOCRIT 39.2 % (36.7-47.1); HEMOGLOBIN 12.7 g/dL (12.5-16.3); LYMPHOCYTES # (AUTO) 1.5 K/uL (20.0-40.0); LYMPHOCYTES % (AUTO) 47.8 % (20.5-51.5); MEAN CORPUSCULAR HEMOGLOBIN 27.1 uug (23.8-33.4); MEAN CORPUSCULAR HGB CONC 33 g/dL (32.5-36.3); MEAN CORPUSCULAR VOLUME 83.4 fL (73.0-96.2); MONOCYTES # (AUTO) 0.3 K/uL (2.0-10.0); MONOCYTES % (AUTO) 10.1 % (0.0-11.0); NEUTROPHILS # (AUTO) 1.2 K/uL (1.8-8.9); NEUTROPHILS % (AUTO) 39.5 % (38.5-71.5); PLATELET COUNT (AUTO) 103 K/uL (152-348); WHITE BLOOD COUNT (AUTO) 3.1 K/uL (3.6-10.2)
[2017-06-28 12:00] VITALS: BP 115/68
[2017-06-28 12:09] LABS: *HELPER T-LYMPH MARKR(CD4)ABSO 314 /uL (359-1519); *HELPER T-LYNPH MARKER CD4)% 22.4 % (30.8-58.5)
[2017-06-28] MEDS ORDERED: POTASSIUM CHLORIDE 20 MEQ TAB.PRT.SR PO ONE (13:00)
[2017-06-28] MEDS ORDERED: MAGNESIUM OXIDE 400 MG TABLET PO ONE (13:00)
[2017-06-28 13:07] LABS: HEPATITIS B SURFACE AG Negative (Negative)
[2017-06-28 16:00] VITALS: BP 110/62
--- NOTE | 2017-06-28 18:58 | NUR ---
End of Shift Endorsement given to nightshift nurse. Pt is a 57 y/o admitted for alcohol dependence. Pt has been placed on a 4 day Ativan taper under the care of Dr. Rai. Pt is tolerating the taper AEB CIWA 2 at 1600. PT did not receive any PRN medications. PT did not participate in groups and activities. Pt remained in his room all day, stating he wants to just sleep. intake: 1655ml, Void x6, BM x4. VS WNL. Full Code. PT is alert and oriented x4. Pt is in STABLE condition at this time. Remains compliant with medication and diet regimen. All needs have been met, All safety measures in place per hospital policy. Bed in lowest position, side rails up x2, call-light within reach. Will continue to monitor
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
[2017-06-28 20:01] VITALS: BP 151/94
[2017-06-28] MEDS: QUETIAPINE FUMARATE 100 MG TABLET PO SCH (20:03)
--- NOTE | 2017-06-28 20:10 | NUR ---
PRN Medication Administration patient noted to verbalize increased lower back pain of 7/10. PRN Motrin administered with routine medications. Will continue to monitor.
--- NOTE | 2017-06-28 21:10 | NUR ---
PRN Medication Reassessment Patient is noted in bed sleeping. Breathing even and non labored. No facial grimacing noted. No restlessness or discomfort noted. Patient was given PRN Motrin for lower back pain with medication noted to be effective. Patient continues to sleep with no interruptions noted. will continue to monitor.
[2017-06-29 00:27] VITALS: BP 132/89
[2017-06-29 04:00] VITALS: BP 131/87
--- NOTE | 2017-06-29 07:03 | NUR ---
End of Shift Patient is in bed sleeping. Breathing and non labored. Patient is a 57 year old male admitted on 06/26/17 for ETOH and Benzo Dependence and continues on a modified 4 day Ativan taper. No Known Allergies, Full Code, Regular Diet, placed on fall and seizure precautions, and skin noted intact. Patient was given PRN Motrin for lower back pain with medication noted to be effective. Last noted CIWA 4. All needs attended to promptly. Will endorse to continue plan of care as ordered. Addendum: 06/29/17 at 0703 by EULOGIO PALENCIA LVN DUPLICATE ENTERED IN ERROR
--- NOTE | 2017-06-29 07:36 | NUR ---
BEGINNING OF SHIFT Patient endorsement report received from industrial aerial installer nurse, all pertinent information discussed. patient admitted on: 06/26/2017 with admitting dx: etoh dependence. patient cotinues on 5 day ativan and 5 day subutex taper as ordered. Per industrial aerial installer patient with last ciwa score of: 17 and last cow score of: 9. Patient slept for 6 hours, received PRN: Benadryl and Ativan. Patient continues with 1: 1 for safety precautions. Patient received awake, in room. Educated regarding plan of care for the day and medication regimen with good verbal understanding. Will continue to monitor closely. Safety measures in place.
[2017-06-29 09:15] VITALS: BP 157/87
[2017-06-29] MEDS: IBUPROFEN 600 MG TABLET PO PRN (09:17)
[2017-06-29] MEDS: LORAZEPAM 1 MG TABLET PO SCH ×2 (09:17→21:08)
[2017-06-29] MEDS: ESCITALOPRAM OXALATE 10 MG TABLET PO SCH (09:17)
[2017-06-29] MEDS: FOLIC ACID 1 MG TABLET PO SCH (09:17)
[2017-06-29] MEDS: LABETALOL HCL 200 MG TABLET PO SCH ×2 (09:17→21:09)
[2017-06-29] MEDS: TRIUMEQ PO SCH (09:18)
[2017-06-29] MEDS: THIAMINE HCL 100 MG TABLET PO SCH (09:18)
[2017-06-29] MEDS: MULTIVITAMINS,THERAPEUTIC TABLET PO SCH (09:18)
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
--- NOTE | 2017-06-29 10:18 | NUR ---
MOTRIN REASSESSMENT Patient reports medication effective, decrease in pain, current pain level 3/10, tolerable as per patient.
[2017-06-29 11:04] LABS: BASOPHILS % (AUTO) 0.8 % (0.0-2.0); EOSINOPHILS # (AUTO) 0.1 K/uL (0.0-0.7); EOSINOPHILS % (AUTO) 1.9 % (0.0-7.0); HEMATOCRIT 40.3 % (36.7-47.1); HEMOGLOBIN 12.8 g/dL (12.5-16.3); LYMPHOCYTES # (AUTO) 1.4 K/uL (20.0-40.0); LYMPHOCYTES % (AUTO) 45.5 % (20.5-51.5); MEAN CORPUSCULAR HEMOGLOBIN 26.5 uug (23.8-33.4); MEAN CORPUSCULAR HGB CONC 32 g/dL (32.5-36.3); MEAN CORPUSCULAR VOLUME 83.6 fL (73.0-96.2); MONOCYTES # (AUTO) 0.4 K/uL (2.0-10.0); MONOCYTES % (AUTO) 12.7 % (0.0-11.0); NEUTROPHILS # (AUTO) 1.2 K/uL (1.8-8.9); NEUTROPHILS % (AUTO) 39.1 % (38.5-71.5); PLATELET COUNT (AUTO) 103 K/uL (152-348); RED BLOOD CELL COUNT(AUTO) 4.82 MIL/uL (4.06-5.63); WHITE BLOOD COUNT (AUTO) 3.1 K/uL (3.6-10.2)
[2017-06-29 11:11] LABS: CREATININE 1.1 mg/dL (0.6-1.3); MAGNESIUM 1.9 mg/dL (1.8-2.4); POTASSIUM 3.6 mmol/L (3.5-5.1)
[2017-06-29] MEDS ORDERED: METHYL SALICYLATE/MENTHOL CREAM 28 GM TUBE TOP PRN (12:30)
[2017-06-29 12:59] VITALS: BP 134/85
[2017-06-29] MEDS ORDERED: POTASSIUM CHLORIDE 20 MEQ TAB.PRT.SR PO ONE (13:00)
[2017-06-29] MEDS ORDERED: MAGNESIUM OXIDE 400 MG TABLET PO ONE (13:00)
[2017-06-29] MEDS ORDERED: NEUTRA PHOS PACKET PO ONE (13:00)
[2017-06-29 16:53] VITALS: BP 128/82
--- NOTE | 2017-06-29 18:55 | NUR ---
End of Shift Patient is awake, and alert oriented x4, compliant with therapeutic plan of care. Patient is a 57 year old male admitted on 06/26/17 for ETOH Dependence under the care of Dr. Rai. Patient continues with 4 day Ativan taper as ordered, well tolerated, no ASE noted. Patient currently on day 3 of taper. fall and seizure precautions observed at all times,skin noted intact. Patient was given PRN : Motrin as ordered, with medication noted to be effective. Detox medications effective, 0900 CIWA: 4; 1300 CIWA:4. Last noted CIWA 4. All needs Met and rendered, safety precautions observed at all times. Will endorse patient to third shift lieutenant nurse, all pertinent information discussed.
--- NOTE | 2017-06-29 19:10 | NUR ---
START OF SHIFT Patient is a 57-year-old male admitted on 06/26/17 for ETOH (elisabet) and crack cocaine dependence, with intermittent xanax use. Patient has a past medical history of anxiety, depression, HTN, asthma, and back surgery (25 months ago, according to patient). Patient is HIV positive. Patient is FULL code, NKA to food or drugs, on a regular diet. Patient is on fall and seizure precautions, with no history of seizure. Patient is currently on a 4-day Ativan taper, tolerating well. Upon assessment, patient is alert and oriented x4, laying in bed, watching television. Patient's skin is intact, currently complaining of back pain 02/07. Patient states the pain is throbbing and radiating, continuous. Safety measures in place, bed locked in low position, side rails up x2, call light within reach. Will continue to monitor.
[2017-06-29] MEDS: KETOROLAC TROMETHAMINE 30 MG INJ IM PRN (19:43)
--- NOTE | 2017-06-29 19:43 | NUR ---
PRN TORADOL INJECTION Patient complains of back pain, 02/07. Toradol 30mg IM given in patient's left deltoid, tolerated well. Patient's respirations are even and unlabored, safety measures in place. Will reassess in 30 minutes.
[2017-06-29 20:00] VITALS: BP 171/109
--- NOTE | 2017-06-29 20:13 | NUR ---
PRN TORADOL REASSESSMENT Patient states that he feels better, less pain, 4/10 on pain scale. PRN Toradol effective. Safety measures in place, call light within reach. Will continue to monitor.
[2017-06-29] MEDS: QUETIAPINE FUMARATE 100 MG TABLET PO SCH (21:08)
--- NOTE | 2017-06-30 | NUR ---
MIDNIGHT VITALS REFUSED, CIWA DEFERRED Patient refused midnight vitals, CIWA deferred due to patient asleep; to be assessed and scored while patient is awake, per protocol. Patient's respirations are even and unlabored, 14/min. Safety measures in place, side rails up x2, call light within reach. Will continue to monitor.
--- NOTE | 2017-06-30 04:00 | NUR ---
4AM VITALS REFUSED, CIWA DEFERRED Patient refused midnight vitals, CIWA deferred due to patient sleeping; to be assessed and scored while patient is awake. Safety measures in place, bed locked in low position, side rails up x2, call light within reach. Will continue to monitor.
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
--- NOTE | 2017-06-30 07:50 | NUR ---
START OF SHIFT NOTE Received report from night nurse, 57-year-old male admitted for ETOH and Crack Cocaine dependence, Xanax dependence. Patient has PMH of anxiety, depression, HTN, asthma. Per endorsement pt was given PRN Toradol effective per night nurse,last CIWA score was 4, slept for 9 hours. Patient received awake, alert and oriented x4. Patient was educated regarding plan of care for the day and medication regimen. Safety measures in place. call light with in reach. Will continue to monitor.
[2017-06-30 08:00] VITALS: BP 160/101
[2017-06-30] MEDS: TRIUMEQ PO SCH (08:22)
[2017-06-30] MEDS: THIAMINE HCL 100 MG TABLET PO SCH (08:22)
[2017-06-30] MEDS: MULTIVITAMINS,THERAPEUTIC TABLET PO SCH (08:22)
[2017-06-30] MEDS: FOLIC ACID 1 MG TABLET PO SCH (08:22)
[2017-06-30] MEDS: ESCITALOPRAM OXALATE 10 MG TABLET PO SCH (08:22)
[2017-06-30] MEDS: LABETALOL HCL 200 MG TABLET PO SCH ×2 (08:23→20:14)
[2017-06-30] MEDS ORDERED: LORAZEPAM 1 MG TABLET PO SCH (09:00)
[2017-06-30] MEDS ORDERED: AMLODIPINE 5 MG TABLET PO SCH (09:00)
[2017-06-30 12:00] VITALS: BP 160/105
[2017-06-30] MEDS: IBUPROFEN 600 MG TABLET PO PRN ×2 (12:22→18:27)
--- NOTE | 2017-06-30 12:24 | NUR ---
PRN HYDRALAZINE/MOTRIN Patient noted with high blood pressure 160/105 and reported headache 5/10, PRN Hydralazine 50mg PO/Motrin 600mg Po given as ordered. Will cont to monitor and reassess.
--- NOTE | 2017-06-30 13:24 | NUR ---
HYDRALAZINE/MOTRIN REASSESSMENT Patient reported Motrin was effective in alleviating his headache 07/10, and blood pressure noted 144/72.
[2017-06-30] MEDS ORDERED: hydrALAZINE HCL 50 MG TABLET PO ONE (14:30)
[2017-06-30] MEDS ORDERED: LABETALOL HCL 100 MG TABLET PO ONE (14:30)
[2017-06-30] MEDS ORDERED: LABE200T8 PO (14:55)
[2017-06-30] MEDS ORDERED: DIPH50CA37 PO (14:55)
[2017-06-30] MEDS ORDERED: AMLO10TA2 PO (14:55)
[2017-06-30] MEDS ORDERED: IBUP-1955 PO (14:55)
[2017-06-30 16:00] VITALS: BP 155/103
[2017-06-30] MEDS: CLONIDINE HCL 0.1 MG TABLET PO PRN (16:52)
--- NOTE | 2017-06-30 16:52 | NUR ---
PRN CLONIDINE/TYLENOL Patient c/o of headache 12/08, an blood pressure noted 155/103, PRN Tylenol 650mg Po/Clonidine 0.1mg PO given as ordered. Will cont to monitor and reassess the pt.
--- NOTE | 2017-06-30 17:52 | NUR ---
PRN CLONIDINE/TYLENOL Blood pressure noted 138/70, and Tylenol was effective in controlling the headache 08/10.
--- NOTE | 2017-06-30 18:27 | NUR ---
PRN MOTRIN/ZOFRAN Patient c/o of headache /10, and nausea no emesis. PRN Motrin 600mg/Zofran 4mg SL given as ordered. Will cont to monitor and reassess.
--- NOTE | 2017-06-30 19:07 | NUR ---
ZOFRAN REASSESSMENT Per pt Zofran was effective nausea improved.
--- NOTE | 2017-06-30 19:09 | NUR ---
END OF SHIFT NOTE Patient completed his Ativan taper tolerated well. During shift patient received PRN Hydralazine/Clonidine/Motrin/Tylenol and one time order of hydralazine and Labetalol noted to be effective. Pt medication compliant and tolerated well. No ASE noted. Patient scheduled for discharge in AM. Last CIWA score was 2. Bed on lowest position with side rails x2 up for safety. Call light within reach. No distress noted at this time.
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
[2017-06-30 20:00] VITALS: BP 150/96
[2017-06-30] MEDS: QUETIAPINE FUMARATE 100 MG TABLET PO SCH (20:13)
[2017-06-30] MEDS: KETOROLAC TROMETHAMINE 30 MG INJ IM PRN ×2 (20:14→22:33)
[2017-06-30] MEDS ORDERED: AMLODIPINE 5 MG TABLET PO ONE (21:00)
--- NOTE | 2017-06-30 22:33 | NUR ---
PRN Toradol Patient complained of 9/10 lower back pain. Patient in bed with facial grimacing noted. PRN Toradol administered at left deltoid. Will monitor for effectiveness of medication.
--- NOTE | 2017-06-30 23:33 | NUR ---
PRN Reassessment Patient asleep in bed and appears comfortable. No facial grimacing noted. Safety measures in place. Will continue to monitor patient.
[2017-07-01 04:00] VITALS: BP 149/85
[2017-07-01] MEDS: CLONIDINE HCL 0.1 MG TABLET PO PRN (04:19)
[2017-07-01] MEDS: IBUPROFEN 600 MG TABLET PO PRN (04:19)
--- NOTE | 2017-07-01 04:19 | NUR ---
PRN Motrin & Clonidine Patient complained of 7/10 back pain. Patient appears restless with facial grimacing noted. Vitals taken and noted with B/P 148/95 IA 63. PRN Motrin & Clonidine administered as ordered. Will monitor for effectiveness of medication.
--- NOTE | 2017-07-01 07:03 | NUR ---
End of Shift Note: Patient had an uneventful night. Patient completed his Ativan taper and is scheduled to be discharge today. Patient verbalized readiness to be discharge. Last CIWa 3. Pt received PRN Toradol, Motrin & Clonidine during my shift. Patient remained stable. Vitals monitored closely and noted within normal limits. Patient is compliant with medications and treatment plan. Patient shows no s/s of distress. Patient slept for a total of 9 hour. Fluid intake 296 ml. Encourage pt to increase fluid intake. Voided 2x with no bowel movement. All needs attended & met. Safety measures in place. Will continue to monitor patient.
--- NOTE | 2017-07-01 07:30 | NUR ---
START OF SHIFT NOTE Received report from night nurse, 57-year-old male admitted for ETOH and Crack Cocaine dependence, Xanax dependence. Patient has PMH of anxiety, depression, HTN, asthma. Per endorsement pt was given PRN Toradol/Motrin/Clonidine effective per night nurse,last CIWA score was 3, slept for 9 hours. Patient received awake, alert and oriented x4. Patient was educated regarding plan of care for the day and medication regimen. Safety measures in place. call light with in reach. Will continue to monitor.
[2017-07-01 08:00] VITALS: BP 143/95
[2017-07-01 08:13] VITALS: BP 143/95
[2017-07-01] MEDS: FOLIC ACID 1 MG TABLET PO SCH (08:13)
[2017-07-01] MEDS: TRIUMEQ PO SCH (08:13)
[2017-07-01] MEDS: ESCITALOPRAM OXALATE 10 MG TABLET PO SCH (08:13)
[2017-07-01] MEDS: MULTIVITAMINS,THERAPEUTIC TABLET PO SCH (08:13)
[2017-07-01] MEDS: THIAMINE HCL 100 MG TABLET PO SCH (08:13)
[2017-07-01] MEDS: LABETALOL HCL 200 MG TABLET PO SCH (08:13)
[2017-07-01] MEDS ORDERED: AMLODIPINE 10 MG TABLET PO SCH (09:00)
--- NOTE | 2017-07-01 09:35 | NUR ---
DISCHARGE NOTE Patient is in stable condition. Vital signs WNL,Patient is alert oriented x4, Skin intact warm and dry to touch. Patient denies any SI/HI ideations. All discharge paper work done signed and dated. Patient educated about discharge instructions, Pt verbalized understanding. Patient 's last CIWA score was 1. Patient discharged from [facility] on 07/01/17 at 0935. Patient left the building with all of his belongings and prescriptions, medications returned to the patient. MD has been contracted and notified of Pt's discharge.
[2017-07-02 08:06] LABS: *COMMENTS Note: (.)
== END 2017-07-01 09:35 | disposition other institution (70) | DRG 895 ==
LOC: SRC 23:06
PROVIDERS: ADMIT Internal Medicine; ATTEND Internal Medicine
PROC: HZ2ZZZZ Detoxification Services for Substance Abuse Treatment (ICD-10-PCS; principal; 2017-06-26)
PROC: HZ31ZZZ Individual Counseling for Substance Abuse Treatment, Behavioral (ICD-10-PCS; 2017-06-28)
PROC: HZ41ZZZ Group Counseling for Substance Abuse Treatment, Behavioral (ICD-10-PCS; 2017-06-30)
DX: F10.230 Alcohol dependence with withdrawal, uncomplicated (principal); D61.818 Other pancytopenia; E83.42 Hypomagnesemia; E83.39 Other disorders of phosphorus metabolism; I15.8 Other secondary hypertension; F14.20 Cocaine dependence, uncomplicated; F33.1 Major depressive disorder, recurrent, moderate; W19.XXXA Unspecified fall, initial encounter; J45.20 Mild intermittent asthma, uncomplicated; Y90.9 Presence of alcohol in blood, level not specified; F12.20 Cannabis dependence, uncomplicated; Z81.1 Family history of alcohol abuse and dependence; G89.29 Other chronic pain; M54.5 Low back pain; E87.6 Hypokalemia; E88.09 Other disorders of plasma-protein metabolism, not elsewhere classified; Z59.1 Inadequate housing; Z79.899 Other long term (current) drug therapy; S43.401A Unspecified sprain of right shoulder joint, initial encounter; Y92.89 Other specified places as the place of occurrence of the external cause
CPT/HCPCS: 36415; 70030-TC; 80307; 80346; 80349; 80353; 83735; 84100; 85025; 86361; 86580; 86592; 86705; 86803; 87340; 87536; 87806; 93005; G0480; J1885; Q0162